=== PATIENT | female | born 1975 | race Caucasian/White ===

== ENCOUNTER 2024-06-29 06:46 | Day surgery (SDC) | payer OTHER ==
[2024-06-29] MEDS ORDERED: Midazolam 1 MG/ML 2 ML SDV ONE (07:22)
[2024-06-29] MEDS ORDERED: fentaNYL 50 MCG/ML SDV ONE (07:23)
[2024-06-29] MEDS ORDERED: Propofol 200 MG/20 ML SDV ONE ×2 (07:23→08:25)
[2024-06-29] MEDS: Sodium Chloride 0.9% 1,000 ML IV SCH (07:26)
== END 2024-06-29 09:55 | disposition home or self-care (01) ==
LOC: JP.SDS 06:46
PROVIDERS: ATTEND Surgery
DX: Z12.11 Encounter for screening for malignant neoplasm of colon (principal); K22.10 Ulcer of esophagus without bleeding; E66.9 Obesity, unspecified; Z87.891 Personal history of nicotine dependence; Z91.048 Other nonmedicinal substance allergy status
CPT/HCPCS: 00813; 43239; 88305; 88313; 88341; 88342; G0121; J2250; J2704; J3010; J7030